=== PATIENT | female | born 1985 | race Caucasian/White ===

== ENCOUNTER → 2023-11-19 15:31 | Outpatient (REF) | payer OTHER, SELFPAY | LOC: RAD 15:31 | PROVIDERS: ATTENDING PHYSICIAN Nurse Practitioner | DX: M25.571 Pain in right ankle and joints of right foot (principal) | CPT/HCPCS: 73610 ==

== ENCOUNTER → 2023-11-22 13:27 | Outpatient (REF) | payer OTHER, SELFPAY | LOC: WDC 13:27 | PROVIDERS: ATTENDING PHYSICIAN Nurse Practitioner | DX: N64.4 Mastodynia (principal) | CPT/HCPCS: 76642 ==

== ENCOUNTER → 2023-12-25 12:42 | Outpatient (REF) | payer OTHER, SELFPAY | LOC: WDC 12:42 | PROVIDERS: ATTENDING PHYSICIAN Obstetrics & Gynecology Gynecology; FAMILY PHYSICIAN Nurse Practitioner | DX: Z12.31 Encounter for screening mammogram for malignant neoplasm of breast (principal) | CPT/HCPCS: 77063; 77067 ==

== ENCOUNTER → 2024-01-07 09:00 | Outpatient (REF) | payer OTHER, SELFPAY | LOC: WDC 09:00 | PROVIDERS: ATTENDING PHYSICIAN Obstetrics & Gynecology Gynecology; FAMILY PHYSICIAN Nurse Practitioner | DX: R92.8 Other abnormal and inconclusive findings on diagnostic imaging of breast (principal) | CPT/HCPCS: 77065 ==

== ENCOUNTER → 2024-02-28 07:45 | Outpatient (REF) | payer OTHER, SELFPAY | LOC: EMG 07:45 | PROVIDERS: ATTENDING PHYSICIAN Nurse Practitioner | DX: G54.2 Cervical root disorders, not elsewhere classified (principal); R20.2 Paresthesia of skin | CPT/HCPCS: 95886; 95910 ==

== ENCOUNTER 2024-03-12 07:44 | Outpatient (RCR) | payer OTHER, SELFPAY | END 2024-03-12 23:59 | disposition home or self-care (01) | LOC: RPT 07:44 | PROVIDERS: ATTENDING PHYSICIAN Physical Medicine & Rehabilitation; FAMILY PHYSICIAN Nurse Practitioner | DX: M54.12 Radiculopathy, cervical region (principal); Z73.6 Limitation of activities due to disability | CPT/HCPCS: 97110; 97162 ==

== ENCOUNTER → 2024-12-31 08:52 | Outpatient (REF) | payer OTHER, SELFPAY | LOC: WDC 08:52 | PROVIDERS: ATTENDING PHYSICIAN Obstetrics & Gynecology Gynecology; FAMILY PHYSICIAN Nurse Practitioner | DX: Z12.31 Encounter for screening mammogram for malignant neoplasm of breast (principal) | CPT/HCPCS: 77063; 77067 ==